=== PATIENT | male | born 1970 | race Caucasian/White ===

== ENCOUNTER → 2017-06-06 | Day surgery (SDC) | END | disposition home or self-care (01) ==

== ENCOUNTER 2017-07-08 01:58 | Emergency (ER) | END 2017-07-08 04:33 | disposition home or self-care (01) ==

== ENCOUNTER 2018-08-08 12:02 | Emergency (ER) | payer OTHER ==
[~2018-08-08] VITALS: Ht 170.2 cm; Wt 77.4 kg
[~2018-08-08 12:02] MED LIST: CLIN300C10 PO; IBUP-1542 PO; TRAM50TA2 PO
[2018-08-08 12:12] VITALS: BP 162/107; PULSE 93; RESP 18; Ht 170.2 cm; Wt 77.4 kg
[2018-08-08] MEDS ORDERED: TRIA15CR55 TOP (13:02)
[2018-08-08] MEDS ORDERED: ACET500C5 PO (13:02)
[2018-08-08] MEDS ORDERED: CETI10TA19 PO (13:02)
--- NOTE | 2018-08-08 13:07 | ERD ---
ER Documentation Chief Complaint Chief Complaint bilat ankle pain/swelling x1 week [place] cause HPI 47-year-old male presents with pain in his bilateral ankles for the last week. He has been playing sports, catcher in softball. He was treated in the last few weeks for possible secondary infection of a chemical burn on his left foot. He is worried about persistent infection or recurrent infection. He also has rashes on his bilateral feet which he states due to dryness. Denies any lesions on his hands, trunk, fevers, vomiting, shortness of breath or chest pain. ROS All systems reviewed and are negative except as per history of present illness. Medications Home Meds Active Scripts Acetaminophen* (Tylophen*) 500 Mg Capsule, 1 CAP PO Q6H PRN for PAIN AND OR ELEVATED TEMP, #20 CAP Prov:CLARE RAGLAND MD 08/08/18 Triamcinolone Acetonide (Triamcinolone Acetonide) 0.1% - 15 Gm Cream.gm., 1 APPLIC TOP BID for 10 Days, #1 TUB Prov:CLARE RAGLAND MD 08/08/18 Cetirizine Hcl* (Cetirizine Hcl*) 10 Mg Tablet, 10 MG PO DAILY, #30 TAB Prov:CLARE RAGLAND MD 08/08/18 Tramadol HCl (Tramadol HCl) 50 Mg Tablet, 50 MG PO Q6 PRN for SEVERE PAIN LEVEL 7-10, #20 TAB Prov:ISAIAS BERRIOS NP 07/08/17 Ibuprofen* (Motrin*) 600 Mg Tab, 600 MG PO Q6H PRN for PAIN AND OR ELEVATED TEMP, #30 TAB Prov:ISAIAS BERRIOS NP 07/08/17 Clindamycin Hcl* (Clindamycin Hcl*) 300 Mg Capsule, 300 MG PO TID for 10 Days, CAP Prov:ISAIAS BERRIOS NP 07/08/17 Reported Medications [none] Unknown Strength No Conflict Check 07/08/17 Allergies Allergies: Coded Allergies: No Known Drug Allergies (Unverified Allergy, Unknown, 07/08/17) PMhx/Soc Hx Cardiac Disorders: Yes (htn) Hx Alcohol Use: Yes (occassionally) Hx Substance Use: Yes (occassionally) Hx Tobacco Use: Yes (occassionally) FmHx Family History: No diabetes, No coronary disease, No other Physical Exam Vitals Vital Signs Date Temp Pulse Resp B/P (MAP) Pulse Ox O2 O2 Flow FiO2 Time Delivery Rate 08/08/18 99.0 93 18 162/107 98 12:12 (125) Physical Exam Const: No acute distress Head: Atraumatic Eyes: Normal Conjunctiva ENT: Normal External Ears, Nose and Mouth. Neck: Full range of motion. No meningismus. Resp: Clear to auscultation bilaterally Cardio: Regular rate and rhythm, no murmurs Abd: Soft, non tender, non distended. Normal bowel sounds Skin: No petechiae or purpura. Thickening and excoriations and chronic irritation of the soles of the feet. There is some excoriations and dryness dorsally as well. There is no warmth, erythema. There appears to be a healed chemical burn. Minimal tenderness in the bilateral ankle joints without significant effusion, warmth, erythema. Back: No midline or flank tenderness Ext: No cyanosis, or edema Neur: Awake and alert Psych: Normal Mood and Affect Procedures/MDM Patient presents with multiple complaints regarding his ankles. He does have signs of chronic eczema or dermatitis without signs of cellulitis, purpura, life-threatening rashes. He will be treated with triamcinolone and Zyrtec for this. He also has pain in the bilateral ankle joints after playing sports specifically squatting as a catcher playing softball. I suspect he has mild bilateral sprains. There is no history of acute injury to suggest fracture, dislocation. There is no signs of septic arthritis, concerns for osteomyelitis. We will treat with Tylenol for this, recommendations for ice, elevation, return precautions for redness, fevers, new worsening symptoms. The patient was stable with no new complaints during the ER course. Clinically, there is no current evidence to suggest meningitis, sepsis, acute abdomen, pneumonia, stroke, acute coronary syndrome, pulmonary embolism, aortic dissection or any other emergent condition appearing to require further evaluation or hospitalization. Patient counseled regarding my diagnostic impression and care plan. Prior to discharge all questions answered. Pt agrees with treatment plan and understands strict return precautions. Pt is instructed to follow up with primary care provider within 24-48 hours. Precautionary instructions provided including instructions to return to the ER if not improving or for any worsening or changing symptoms or concerns. Disclaimer: Inadvertent spelling and grammatical errors are likely due to EHR/dictation software use and do not reflect on the overall quality of patient care. Also, please note that the electronic time recorded on this note does not necessarily reflect the actual time of the patient encounter. Departure Diagnosis: Primary Impression: Dermatitis Additional Impression: Arthralgia Joint pain location: ankle Laterality: bilateral Qualified Codes: M25.571 - Pain in right ankle and joints of right foot; M25.572 - Pain in left ankle and joints of left foot Condition: Stable Patient Instructions: Arthralgia, Dermatitis, Non-Specific Additional Instructions: Suspect strain from sports as well as nonspecific dermatitis. Recheck for redness, fevers, new worsening symptoms with her doctor. Recommend elevation and ice at home. CLARE RAGLAND MD Aug 08, 2018 13:07
== END 2018-08-08 13:55 | disposition home or self-care (01) ==
LOC: FTE 12:02
DX: L30.9 Dermatitis, unspecified (principal); I10 Essential (primary) hypertension; Z87.891 Personal history of nicotine dependence
CPT/HCPCS: 99283